=== PATIENT | female | born 1950 | race Caucasian/White ===

== ENCOUNTER → 2016-11-20 | Outpatient (CLI) | payer BC ==
[~2016-11-20] MED LIST: ASPIRIN (CHILDR81 MG PO; COREG6.25 MG PO; DIABETA5 MG PO; DIAZEPAM5 MG PO; FEOSOL325 MG PO; GLUCOPHAGE1000 MG PO; HYDRODIURIL25 MG PO; LANTUS (IN100 UNIT/M SUB-Q; LASIX40 MG PO; LEVOTHROID(SYN75 MCG PO; LIPITOR10 MG PO; MAG-OX-400(241400 MG PO; MIRALAX17 GM PO; NEURONTIN300 MG PO; NOVOLOG100 UNIT/M SUB-Q; THERA-VITE W/ B1 TAB PO; TYLENOL325 MG PO; VITAMIN B-122000 MC1 PO; VITAMIN B-12500 MCG PO; VITAMIN D1000 UNIT PO
== END | disposition disaster alternative care site (69) ==
LOC: GBCOE 12:27
DX: Z12.31 Encounter for screening mammogram for malignant neoplasm of breast (principal)
CPT/HCPCS: G0202